=== PATIENT | male | born 1935 | race Hispanic/Latino ===

== ENCOUNTER → 2017-12-20 | Outpatient (CLI) | payer OTHER ==
[~2017-12-20] MED LIST: CLON0.3T PO; LEVO50TA11 PO; LISI40TA4 PO; MULT-1289 PO; PRAV40TA3 PO; VITA1CAP85 PO
== END | disposition home or self-care (01) ==
LOC: RAH 08:49
PROVIDERS: ATTEND Internal Medicine Cardiovascular Disease
DX: M47.896 Other spondylosis, lumbar region (principal); M51.26 Other intervertebral disc displacement, lumbar region; I73.9 Peripheral vascular disease, unspecified; N28.1 Cyst of kidney, acquired
CPT/HCPCS: 72148

== ENCOUNTER → 2018-01-03 | Outpatient (CLI) | payer OTHER | END | disposition home or self-care (01) | LOC: SHCH 09:23 | PROVIDERS: ATTEND Internal Medicine Cardiovascular Disease | DX: I73.9 Peripheral vascular disease, unspecified (principal); I71.4 Abdominal aortic aneurysm, without rupture | CPT/HCPCS: 93925; 93978 ==

== ENCOUNTER → 2018-05-10 | Outpatient (CLI) | payer OTHER ==
[~2018-05-10] VITALS: Ht 185.4 cm; Wt 77.1 kg
[~2018-05-10] MED LIST changes: +REGADENOSON 0.4 MG/5 ML PF SYG IVP SCH
== END | disposition home or self-care (01) ==
LOC: SHCH 08:33
PROVIDERS: ATTEND Internal Medicine Cardiovascular Disease
DX: I25.9 Chronic ischemic heart disease, unspecified (principal); I10 Essential (primary) hypertension; R94.31 Abnormal electrocardiogram [ECG] [EKG]; E03.9 Hypothyroidism, unspecified
CPT/HCPCS: 78452; 93017; 96374; A9500 ×2; J2785

== ENCOUNTER → 2018-05-14 | Outpatient (CLI) | payer OTHER ==
[~2018-05-14] MED LIST changes: -REGADENOSON 0.4 MG/5 ML PF SYG IVP SCH
== END | disposition home or self-care (01) ==
LOC: SHCH 12:56
PROVIDERS: ATTEND Internal Medicine Cardiovascular Disease
DX: R94.31 Abnormal electrocardiogram [ECG] [EKG] (principal); I10 Essential (primary) hypertension
CPT/HCPCS: 93306

== ENCOUNTER → 2018-10-25 | Outpatient (CLI) | payer OTHER ==
[~2018-10-25] MED LIST changes: +AEC81 PO; -LEVO50TA11 PO; +LEVO75TA10 PO; +MULT-1258 PO; -MULT-1289 PO; +SUPER B COMPLEX PO; -VITA1CAP85 PO
== END | disposition home or self-care (01) ==
LOC: SHCH 11:19
PROVIDERS: ATTEND Internal Medicine Cardiovascular Disease
DX: I11.9 Hypertensive heart disease without heart failure (principal)
CPT/HCPCS: 93306

== ENCOUNTER → 2018-11-01 | Outpatient (CLI) | payer OTHER ==
[~2018-11-01] VITALS: Ht 185.4 cm; Wt 73.5 kg
[~2018-11-01] MED LIST changes: +REGADENOSON 0.4 MG/5 ML PF SYG IVP SCH
== END | disposition home or self-care (01) ==
LOC: SHCH 09:26
PROVIDERS: ATTEND Internal Medicine Cardiovascular Disease
DX: I25.810 Atherosclerosis of coronary artery bypass graft(s) without angina pectoris (principal)
CPT/HCPCS: 78452; 93017; 96374; A9500 ×2; J2785

== ENCOUNTER 2018-12-11 06:16 | Observation (INO) | payer OTHER ==
[2018-12-09 09:17] LABS: BASOPHILS % (AUTO) 0.7 % (0.0-5.0); EOSINOPHILS % (AUTO) 2.3 % (0.0-8.0); HEMATOCRIT 47.4 % (42-54); LYMPHOCYTES % (AUTO) 24.6 % (21.0-51.0); MEAN CORPUSCULAR HEMOGLOBIN 31.8 pg (27.0-33.0); MEAN CORPUSCULAR HGB CONC 33.8 g/dL (32.0-36.0); MEAN CORPUSCULAR VOLUME 94.2 fL (79-99); MONOCYTES % (AUTO) 6.9 % (3.0-13.0); NEUTROPHILS % (AUTO) 65.5 % (40.0-77.0); PLATELET COUNT (AUTO) 144 K/uL (130-400); RED BLOOD CELL COUNT(AUTO) 5.03 MIL/uL (4.50-6.20); WHITE BLOOD COUNT (AUTO) 4.6 K/uL (4.8-10.8)
[2018-12-09 09:19] LABS: APPEARANCE,URINE Clear (CLEAR); BILIRUBIN,URINE Negative (NEGATIVE); COLOR,URINE Yellow (YELLOW); GLUCOSE, URINE (UA) Negative (NEGATIVE); KETONES,URINE Negative (NEGATIVE); LEUKOCYTE ESTERASE ,URINE Negative (NEGATIVE); NITRATE,URINE Negative (NEGATIVE); OCCULT BLOOD,URINE Small (NEGATIVE); PROTEIN,URINE Negative (NEGATIVE)
[2018-12-09 09:25] VITALS: BP 180/82
[2018-12-09 09:29] LABS: BACTERIA,URINE Rare /HPF (None Seen); RBC,URINE 0-1 /HPF (0-1); SQUAMOUS EPITHELIAL CELL,UR Rare /HPF (0-2); WBC,URINE 0-1 /HPF (0-1)
[2018-12-09 09:31] LABS: CREATININE 1.1 mg/dL (0.5-1.5); POTASSIUM 5.4 mmol/L (3.5-5.1)
[2018-12-09 09:34] LABS: INR 1.04 (0.85-1.15); PROTHROMBIN TIME 10.9 SEC (9.6-11.6)
--- NOTE | 2018-12-10 13:31 | NUR ---
POTASSIUM RESULTS NOTIFIED MELIDA MAHONEY OF POTASSIUM 5.4. SAID IT SHOULD BE FINE. NO FURTHER ORDERS RECEIVED.
[~2018-12-11] VITALS: Ht 180.3 cm; Wt 74.9 kg
[2018-12-11] VITALS (12 sets, daily range): BP systolic 118–164; BP diastolic 69–101
[~2018-12-11 06:16] MED LIST changes: -CLON0.3T PO; +METO25TA6 PO; -MULT-1258 PO; -REGADENOSON 0.4 MG/5 ML PF SYG IVP SCH; +SODIUM CHLORIDE 0.9% 500ML 500 ML IV SCH; +feosol PO
[2018-12-11] MEDS ORDERED: SODIUM CHLORIDE 0.9% 1000ML 1,000 ML IV ONE (06:40)
[2018-12-11] MEDS ORDERED: HEPARIN SODIUM 1000UNIT/ML 10ML VIAL ONE (07:20)
[2018-12-11] MEDS ORDERED: NITROGLYCERIN 5 MG/ML 10 ML VIAL IV ONE (07:20)
[2018-12-11] MEDS ORDERED: IOHEXOL-350 50ML VIAL IV ONE ×2 (07:20→08:51)
[2018-12-11] MEDS ORDERED: LIDOCAINE HCL 2% 20ML ONE (07:20)
[2018-12-11] MEDS ORDERED: SODIUM BICARB 50MEQ 50ML VIAL ONE (07:20)
[2018-12-11] MEDS ORDERED: IOHEXOL 350 MG/ML 100ML INFUS..BTL IV ONE (07:20)
[2018-12-11] MEDS ORDERED: MIDAZOLAM HCL 1 MG/ML 2ML VIAL ONE ×2 (07:41→08:42)
[2018-12-11] MEDS ORDERED: MEPERIDINE-PF 25 MG/ML SYG ONE ×2 (07:41→08:42)
[2018-12-11] MEDS ORDERED: IOHEXOL-350 75 ML VIAL IV ONE (08:05)
[2018-12-11] MEDS ORDERED: LABETALOL HCL 5 MG/ML 20ML VIAL IV ONE (08:29)
[2018-12-11] MEDS ORDERED: CLOPIDOGREL BISULFATE 300 MG TAB ONE (09:28)
[2018-12-11] MEDS ORDERED: ASPIRIN 325MG EC TAB 325 MG TABLET.DR PO ONE (09:29)
[2018-12-11] MEDS ORDERED: TEMAZEPAM 30 MG CAP PO PRN (09:30)
[2018-12-11] MEDS ORDERED: ONDANSETRON HCL 4 MG/2 ML VIAL IVP PRN (09:30)
[2018-12-11] MEDS ORDERED: NITROGLYCERIN 50 MG/D5% WATER 1 BOT IV PRN (09:30)
[2018-12-11] MEDS ORDERED: ACETAMINOPHEN-CODEINE 300/30MG TAB PO PRN ×2 (09:30)
--- NOTE | 2018-12-11 10:10 | NUR ---
ARRIVAL TO FLOOR PT IS AAOX4 DENIES CP DENIES SOB DENIES NV NO COMPLAINTS. RIGHT GROIN PERCLOSE DRESSING INTACT. BEDREST IN PROGRESS. FAMILY IS AT BEDSIDE, CALL LIGHT WITHIN REACH
[2018-12-11] MEDS: SODIUM CHLORIDE 0.9% 1000ML 1,000 ML IV SCH ×2 (10:27→23:16)
--- NOTE | 2018-12-11 12:00 | NUR ---
STATUS RESTING IN BED. RIGHT GROIN REMAINS WNL. NO COMPLAINTS FAMILY IS AT BEDSIDE.
--- NOTE | 2018-12-12 | NUR ---
PT CONTINUES ON IV FLUIDS. RIGHT GROIN SITE IS SEMI-SOFT AND NON TENDER. STATES NO PAIN. ABLE TO MOVE AROUND IN BED. AAO3. PERRLA. PT IS STABLE. NO MEDICATIONS DUE AT THIS TIME. LAST BM 12/11. PENDING D/C 12/12.
[2018-12-12 03:26] VITALS: BP 112/74
[2018-12-12 03:52] LABS: HEMATOCRIT 41.9 % (42-54); MEAN CORPUSCULAR HEMOGLOBIN 32.2 pg (27.0-33.0); MEAN CORPUSCULAR HGB CONC 34.3 g/dL (32.0-36.0); MEAN CORPUSCULAR VOLUME 93.9 fL (79-99); NUCLEATED RED BLOOD CELLS 0.1 % (0.0-0.19); PLATELET COUNT (AUTO) 111 K/uL (130-400); RED BLOOD CELL COUNT(AUTO) 4.46 MIL/uL (4.50-6.20)
[2018-12-12 04:16] LABS: POTASSIUM 4.5 mmol/L (3.5-5.1)
[2018-12-12 07:54] VITALS: BP 142/81
[2018-12-12] MEDS ORDERED: ATORVASTATIN CALCIUM 10 MG TABLET PO SCH (09:00)
[2018-12-12] MEDS ORDERED: VITAMIN B COMPLEX 1 CAPSULE PO SCH (09:00)
[2018-12-12] MEDS ORDERED: LISINOPRIL 40 MG TABLET PO SCH (09:00)
[2018-12-12] MEDS ORDERED: PANTOPRAZOLE SODIUM 40 MG TABLET.DR PO SCH (09:00)
[2018-12-12] MEDS ORDERED: ASPIRIN 81 MG EC TAB PO SCH (09:00)
[2018-12-12] MEDS ORDERED: CLOPIDOGREL BISULFATE 75 MG TAB PO SCH (09:00)
[2018-12-12] MEDS ORDERED: FERROUS SULFATE 325 MG TABLET.DR PO SCH (09:00)
[2018-12-12] MEDS ORDERED: LEVOTHYROXINE 75 MCG TABLET PO SCH (09:00)
[2018-12-12] MEDS ORDERED: ASPIRIN 81MG TAB.CHEW PO SCH (09:00)
[2018-12-12] MEDS ORDERED: CLOP75TA14 PO (11:00)
[2018-12-12] MEDS ORDERED: METOPROLOL TARTRATE 25 MG TAB PO SCH (21:00)
== END 2018-12-12 11:45 | disposition home or self-care (01) ==
LOC: DAH 06:16 → DAHIP 06:17 → 2AH 09:51
PROVIDERS: ADMIT Internal Medicine; ATTEND Internal Medicine
DX: I25.118 Atherosclerotic heart disease of native coronary artery with other forms of angina pectoris (principal); I25.810 Atherosclerosis of coronary artery bypass graft(s) without angina pectoris; E03.9 Hypothyroidism, unspecified; E78.5 Hyperlipidemia, unspecified; I11.0 Hypertensive heart disease with heart failure; I50.42 Chronic combined systolic (congestive) and diastolic (congestive) heart failure; I25.5 Ischemic cardiomyopathy; I25.82 Chronic total occlusion of coronary artery; I77.819 Aortic ectasia, unspecified site; Z86.73 Personal history of transient ischemic attack (TIA), and cerebral infarction without residual deficits; Z82.49 Family history of ischemic heart disease and other diseases of the circulatory system; Z83.3 Family history of diabetes mellitus; Z95.1 Presence of aortocoronary bypass graft; Z95.5 Presence of coronary angioplasty implant and graft
CPT/HCPCS: 36415 ×2; 71045; 80048 ×2; 80061; 81001; 85025; 85027; 85610; 85730; 93005 ×2; 93459; A4606; C1725; C1760; C1769 ×2; C1874 ×3; C1887; C1894 ×2; C9600; G0378 ×29; J1644 ×3; J2175 ×2; J2250 ×2; J3490 ×4; J7030 ×2; Q9965; Q9967 ×4; 99156; 99157

== ENCOUNTER 2019-01-07 06:05 | Observation (INO) | payer OTHER ==
[2019-01-03 10:41] VITALS: BP 172/84
[2019-01-03 11:15] LABS: APPEARANCE,URINE Clear (CLEAR); BILIRUBIN,URINE Negative (NEGATIVE); COLOR,URINE Yellow (YELLOW); GLUCOSE, URINE (UA) Negative (NEGATIVE); KETONES,URINE Negative (NEGATIVE); LEUKOCYTE ESTERASE ,URINE Negative (NEGATIVE); NITRATE,URINE Negative (NEGATIVE); OCCULT BLOOD,URINE Nonhemolyzed Trace (NEGATIVE); PROTEIN,URINE Negative (NEGATIVE); UROBILINOGEN,URINE 0.2 mg/dL (0.2-1.0)
[2019-01-03 11:17] LABS: BASOPHILS % (AUTO) 0.8 % (0.0-5.0); EOSINOPHILS % (AUTO) 1.2 % (0.0-8.0); HEMATOCRIT 46.3 % (42-54); LYMPHOCYTES % (AUTO) 20.7 % (21.0-51.0); MEAN CORPUSCULAR HEMOGLOBIN 31.7 pg (27.0-33.0); MEAN CORPUSCULAR HGB CONC 33.1 g/dL (32.0-36.0); MEAN CORPUSCULAR VOLUME 95.6 fL (79-99); MONOCYTES % (AUTO) 6.6 % (3.0-13.0); NEUTROPHILS % (AUTO) 70.7 % (40.0-77.0); NUCLEATED RED BLOOD CELLS 0.1 % (0.0-0.19); PLATELET COUNT (AUTO) 148 K/uL (130-400); RED BLOOD CELL COUNT(AUTO) 4.84 MIL/uL (4.50-6.20); RED CELL DISTRIBUTION WIDTH 13.6 % (11.0-15.5); WHITE BLOOD COUNT (AUTO) 4.5 K/uL (4.8-10.8)
[2019-01-03 11:26] LABS: POTASSIUM 4.9 mmol/L (3.5-5.1)
[2019-01-03 11:34] LABS: INR 1.04 (0.85-1.15); PARTIAL THROMBOPLASTIN TIME 35.2 SEC (26.3-35.5); PROTHROMBIN TIME 10.9 SEC (9.6-11.6)
[2019-01-03 12:28] LABS: BACTERIA,URINE Rare /HPF (None Seen); RBC,URINE 0-1 /HPF (0-1); WBC,URINE None Seen /HPF (0-1)
[2019-01-06 08:55] VITALS: BP 148/73
[2019-01-07] VITALS (18 sets, daily range): BP systolic 102–174; BP diastolic 57–88
[~2019-01-07] VITALS: Ht 182.9 cm; Wt 71.7 kg
[~2019-01-07 06:05] MED LIST changes: +BENZ-51 PO; +CLOP75TA32 PO; +MULT-1258 PO; +VITAMIN B12 PO
[2019-01-07] MEDS ORDERED: SODIUM CHLORIDE 0.9% 1000ML 1,000 ML IV ONE (06:37)
[2019-01-07] MEDS ORDERED: SODIUM BICARB 50MEQ 50ML VIAL ONE (08:21)
[2019-01-07] MEDS ORDERED: IOHEXOL 350 MG/ML 100ML INFUS..BTL IV ONE ×3 (08:22→11:06)
[2019-01-07] MEDS ORDERED: LIDOCAINE HCL 2% 20ML ONE (08:22)
[2019-01-07] MEDS ORDERED: NITROGLYCERIN 5 MG/ML 10 ML VIAL IV ONE (08:22)
[2019-01-07] MEDS ORDERED: IOHEXOL-350 50ML VIAL IV ONE (08:22)
[2019-01-07] MEDS ORDERED: HEPARIN SODIUM 1000UNIT/ML 10ML VIAL ONE (08:24)
[2019-01-07] MEDS ORDERED: MEPERIDINE-PF 25 MG/ML SYG ONE (08:42)
[2019-01-07] MEDS ORDERED: MIDAZOLAM HCL 1 MG/ML 2ML VIAL ONE (08:42)
[2019-01-07] MEDS ORDERED: LABETALOL 20 MG/4 ML DISP.SYRIN IV ONE (09:12)
[2019-01-07] MEDS ORDERED: ACETAMINOPHEN-CODEINE 300/30MG TAB PO PRN (11:45)
[2019-01-07] MEDS ORDERED: BENZONATATE 100 MG CAPSULE PO PRN (12:00)
--- NOTE | 2019-01-07 12:15 | NUR ---
PATIENT RETURNED FROM USER EXPERIENCE RESEARCHER IN NO DISTRESS. RIGHT GROIN HAS PRESSURE DRESSING CLEAN AND DRY. PATIENT STATES FEELING WELL. BOTH PATIENT AND FAMILY INSTRUCTED ON PATIENT BEING ON BEDREST. THEY VERBALIZED UNDERSTANDING AND AGREED TO COMPLY.
--- NOTE | 2019-01-07 15:30 | NUR ---
REPORT CALLED TO NAZANIN BETH RN BEFORE TRANSFERRING PT.
--- NOTE | 2019-01-07 15:40 | NUR ---
PATIENT TRANSFERRED VIA HOSPITAL BED TO ROOM 225, PATIENT FAMILY NOTIFIED OF ROOM NUMBER.
--- NOTE | 2019-01-07 15:45 | NUR ---
PATIENT RECEIVED FROM CLAMP JIG ASSEMBLER S/P [facility]. PATIENT ALERT AWAKE AND ORIENTED X3. ORIENTED TO ROOM, BED PLACED TO LOWEST POSITION, CALL LIGHT PLACED WITHIN REACH. INSTRUCTED PATIENT ON LAYING FLAT TILL INSTRUCTED. FAMILY AT BEDSIDE. IV TO LEFT ARM PATENT, IV INFUSING. RIGHT GROIN SITE PRESSURE DRESSING AND PERCLOSE DRY AND INTACT. NO S/S OF BLEEDING. FAMILY WITH NO QUESTIONS OR CONCERNS. PATIENT VS STABLE.
--- NOTE | 2019-01-07 20:30 | NUR ---
ASSESSMENT PATIENT IS AAOX3. S/P LEFT HEART CATH. RT GROIN WITH HEMATOMA. HEMATOMA REPORTED BY A.M. NURSE. HEMATOMA CIRCLED. NO BLEEDING NOTED. PEDAL PULSES PALPABLE. WILL CONTINUE TO MONITOR. CALL LIGHT WITHIN REACH.
[2019-01-07] MEDS ORDERED: ATORVASTATIN CALCIUM 10 MG TABLET PO SCH (21:00)
[2019-01-07] MEDS ORDERED: CLOPIDOGREL BISULFATE 75 MG TAB PO SCH (21:00)
[2019-01-07] MEDS ORDERED: METOPROLOL TARTRATE 25 MG TAB PO SCH (21:00)
[2019-01-07] MEDS: SODIUM CHLORIDE 0.9% 1000ML 1,000 ML IV SCH (21:32)
--- NOTE | 2019-01-07 22:15 | NUR ---
RT. GROIN REMAINS UNCHANGED. NO BLEEDING NOTED. PEDAL PULSES PALPABLE.
--- NOTE | 2019-01-07 23:30 | NUR ---
RT. GROIN REMAINS CHANGED.
[2019-01-08] MEDS: SODIUM CHLORIDE 0.9% 1000ML 1,000 ML IV SCH (01:59)
--- NOTE | 2019-01-08 02:30 | NUR ---
RT. GROIN WITH NO BLEEDING. HEMATOMA REMAINS UNCHANGED. PEDAL PULSES PALPABLE.
[2019-01-08 03:44] LABS: HEMATOCRIT 39.1 % (42-54); MEAN CORPUSCULAR HEMOGLOBIN 33.1 pg (27.0-33.0); MEAN CORPUSCULAR HGB CONC 34.8 g/dL (32.0-36.0); MEAN CORPUSCULAR VOLUME 95.1 fL (79-99); PLATELET COUNT (AUTO) 106 K/uL (130-400); RED BLOOD CELL COUNT(AUTO) 4.11 MIL/uL (4.50-6.20); RED CELL DISTRIBUTION WIDTH 13.5 % (11.0-15.5); WHITE BLOOD COUNT (AUTO) 4.5 K/uL (4.8-10.8)
[2019-01-08 03:52] LABS: CREATININE 0.9 mg/dL (0.5-1.5); POTASSIUM 4.2 mmol/L (3.5-5.1)
--- NOTE | 2019-01-08 04:00 | NUR ---
RT. GROIN REMAINS UNCHANGED. WILL CONTINUE TO MONITOR.
[2019-01-08 04:08] VITALS: BP 96/63
[2019-01-08] MEDS ORDERED: LEVOTHYROXINE 75 MCG TABLET PO SCH (06:30)
[2019-01-08 08:03] VITALS: BP 127/86
[2019-01-08] MEDS ORDERED: MULTIVITAMIN WITH MINERALS TABLET PO SCH (09:00)
[2019-01-08] MEDS ORDERED: ASPIRIN 81 MG EC TAB PO SCH (09:00)
[2019-01-08] MEDS ORDERED: LISINOPRIL 40 MG TABLET PO SCH (09:00)
[2019-01-08] MEDS ORDERED: VITAMIN B COMPLEX 1 CAPSULE PO SCH (09:00)
[2019-01-08] MEDS ORDERED: FERROUS SULFATE 325 MG TABLET.DR PO SCH (09:00)
[2019-01-08] MEDS ORDERED: CYANOCOBALAMIN (VITAMIN B-12) 1,000 MCG TABLET PO SCH (09:00)
[2019-01-08 11:59] VITALS: BP 143/81
[2019-01-08] MEDS ORDERED: ISOS30TA6 PO ×2 (12:45→12:46)
== END 2019-01-08 13:35 | disposition home or self-care (01) ==
LOC: DAH 06:05 → DAHIP 06:06 → 2DH 15:49
PROVIDERS: ADMIT Internal Medicine; ATTEND Internal Medicine
DX: I25.10 Atherosclerotic heart disease of native coronary artery without angina pectoris (principal); E03.9 Hypothyroidism, unspecified; E78.5 Hyperlipidemia, unspecified; I10 Essential (primary) hypertension; Z95.1 Presence of aortocoronary bypass graft; Z83.3 Family history of diabetes mellitus; Z82.49 Family history of ischemic heart disease and other diseases of the circulatory system; Z79.01 Long term (current) use of anticoagulants
CPT/HCPCS: 36415 ×2; 71045; 80048 ×2; 81001; 85025; 85027; 85610; 85730; 93005; 93454; C1725 ×6; C1760; C1769 ×4; C1874 ×2; C1887 ×2; C1894 ×2; C9600; G0378 ×31; J1644 ×3; J2175; J2250; J3490 ×3; J7030 ×2; Q9965 ×2; Q9967 ×3; 99156; 99157

== ENCOUNTER 2019-05-17 19:16 | Observation (INO) | payer OTHER ==
[~2019-05-17] VITALS: Ht 185.4 cm; Wt 75.3 kg
[~2019-05-17 19:16] MED LIST changes: +ISOS30TA6 PO; -SODIUM CHLORIDE 0.9% 500ML 500 ML IV SCH
[2019-05-17] MEDS ORDERED: ASPIRIN 81MG TAB.CHEW ONE (19:41)
[2019-05-17 19:46] LABS: BASOPHILS % (AUTO) 0.5 % (0.0-5.0); EOSINOPHILS % (AUTO) 0.8 % (0.0-8.0); HEMATOCRIT 45.3 % (42-54); MEAN CORPUSCULAR HEMOGLOBIN 32.2 pg (27.0-33.0); MEAN CORPUSCULAR HGB CONC 34.4 g/dL (32.0-36.0); MEAN CORPUSCULAR VOLUME 93.9 fL (79-99); MONOCYTES % (AUTO) 2.9 % (3.0-13.0); NEUTROPHILS % (AUTO) 87.8 % (40.0-77.0); PLATELET COUNT (AUTO) 113 K/uL (130-400); RED BLOOD CELL COUNT(AUTO) 4.82 MIL/uL (4.50-6.20); RED CELL DISTRIBUTION WIDTH 13.3 % (11.0-15.5)
[2019-05-17 20:04] LABS: CREATININE 1.1 mg/dL (0.5-1.5); POTASSIUM 4.1 mmol/L (3.5-5.1)
[2019-05-17 20:07] LABS: ALBUMIN 4.1 g/dL (3.5-5.0); BILIRUBIN,TOTAL 0.8 mg/dL (0.2-1.0); TOTAL PROTEIN, SERUM 7.5 g/dL (6.0-8.3)
[2019-05-17 20:25] LABS: B-TYPE NATRIURETIC PEPTIDE 91 pg/mL (0-100)
[2019-05-17 20:26] LABS: APPEARANCE,URINE Clear (CLEAR); BILIRUBIN,URINE Negative (NEGATIVE); COLOR,URINE Yellow (YELLOW); GLUCOSE, URINE (UA) Negative (NEGATIVE); KETONES,URINE Negative (NEGATIVE); LEUKOCYTE ESTERASE ,URINE Negative (NEGATIVE); NITRATE,URINE Negative (NEGATIVE); OCCULT BLOOD,URINE Small (NEGATIVE); PH,URINE 6.5 (5.0-8.0); PROTEIN,URINE POS 1+ mg/dL (NEGATIVE)
[2019-05-17 20:38] LABS: BACTERIA,URINE Few /HPF (None Seen); MUCUS,URINE Moderate LPF (None Seen)
[2019-05-17] MEDS ORDERED: IPRATROPIUM/ALBUTEROL SULFATE 3 ML SOLUTION IH PRN (21:15)
[2019-05-17] MEDS ORDERED: ACETAMINOPHEN 325 MG TAB PO PRN ×2 (21:15)
[2019-05-17] MEDS ORDERED: ONDANSETRON HCL 4 MG/2 ML VIAL IV PRN (21:15)
[2019-05-17] MEDS ORDERED: LACTULOSE 20 GM/30 ML UDCUP PO PRN (21:15)
[2019-05-17] MEDS ORDERED: HYDRALAZINE HCL 20 MG/ML VIAL IV PRN (21:15)
[2019-05-17 21:25] LABS: CHOLESTEROL 143 mg/dL (<200); HDL CHOLESTEROL 124 mg/dL (29-71); HEMOGLOBIN A1C 5.4 % (4.0-6.0); LDL DIRECT 67 mg/dL (0-99); TRIGLYCERIDES 71 mg/dL (30-200)
[2019-05-17 22:49] VITALS: BP 116/70
[2019-05-18] VITALS (8 sets, daily range): BP systolic 96–148; BP diastolic 47–88
[2019-05-18 02:57] LABS: TROPONIN I 0.05 ng/mL (0.00-0.06)
[2019-05-18] MEDS ORDERED: NOREPINEPHRINE 4MG/NS 250ML 250 ML IV SCH (04:45)
--- NOTE | 2019-05-18 05:00 | NUR ---
B/P B/P 74/47 PULSE 42, RESP,.18 TEMP 98.6 F, SAT 95 ON R/A, HOSPITALIST Elsy HASTINGS POLICY SERVICE COORDINATOR TO SEE PATIENT AND EXAMEN WITH ORDERS TO SEND PATIENT TO ICU FOR VASOPRESSOR, START BOLUS 1000 CC OF NS NOW
[2019-05-18] MEDS ORDERED: FEXO-59 PO (05:06)
[2019-05-18] MEDS ORDERED: BUDE10.2 IH (05:06)
[2019-05-18] MEDS ORDERED: CILO50TA PO (05:06)
--- NOTE | 2019-05-18 05:15 | NUR ---
TRANSFER REPORT GIVEN TO ICU ORDERED TO TRANSFER PATIENT ORDERED, TEMP97.9 F/RESP 68 B/P 125/71, SAT 95 R/A, A DARLING COMPUTER REPAIR ENGINEER AT BEDSIDE, WITH ORDERS TO TRANSFER
[2019-05-18] MEDS ORDERED: SODIUM CHLORIDE 0.9% 1000ML 1,000 ML IV ONE (05:30)
[2019-05-18 05:35] LABS: BASOPHILS % (AUTO) 1.9 % (0.0-5.0); EOSINOPHILS % (AUTO) 0.6 % (0.0-8.0); HEMATOCRIT 40.2 % (42-54); LYMPHOCYTES % (AUTO) 10.8 % (21.0-51.0); MEAN CORPUSCULAR HEMOGLOBIN 32.2 pg (27.0-33.0); MEAN CORPUSCULAR VOLUME 94.8 fL (79-99); MONOCYTES % (AUTO) 6.2 % (3.0-13.0); NEUTROPHILS % (AUTO) 80.5 % (40.0-77.0); PLATELET COUNT (AUTO) 101 K/uL (130-400); RED BLOOD CELL COUNT(AUTO) 4.24 MIL/uL (4.50-6.20); RED CELL DISTRIBUTION WIDTH 13.4 % (11.0-15.5)
[2019-05-18 05:42] LABS: CREATININE 1.2 mg/dL (0.5-1.5); POTASSIUM 4.3 mmol/L (3.5-5.1)
--- NOTE | 2019-05-18 05:42 | NUR ---
TRANSFER TRANSFER TO ROOM 219 VIA BED ORDERED BY HOSPITALIST DARLING Chin
[2019-05-18 05:55] LABS: THYROID STIMULATING HORMONE 1.92 uIU/mL (0.36-3.74)
[2019-05-18 08:29] LABS: CREATINE KINASE, TOTAL 99 U/L (21-232); MYOGLOBIN 130 ng/mL (10-92); TROPONIN I < 0.04 ng/mL (0.00-0.06)
[2019-05-18] MEDS ORDERED: ENOXAPARIN SODIUM 40 MG/0.4 ML SYRINGE SQ SCH (09:00)
[2019-05-18] MEDS ORDERED: METOPROLOL TARTRATE 25 MG TAB PO SCH ×2 (09:00→21:00)
[2019-05-18] MEDS ORDERED: ASPIRIN 325 MG TABLET PO SCH (09:00)
[2019-05-18] MEDS: FAMOTIDINE 20MG TAB 20 MG TAB PO SCH ×2 (09:38→21:09)
[2019-05-18] MEDS ORDERED: ASPIRIN 81 MG EC TAB PO SCH (10:00)
--- NOTE | 2019-05-18 14:37 | NUR ---
cm note met with patient and with spouse, pt lives with spouse, pt uses rollator walker for ambulation.pt able to do own adls, spouse assists with cooking meals, etc. takes to md as needed. states dc plan is back to same home setting. no dc needs. provided with [facility] agency on aging info,per request for possible future needs. Addendum: 05/18/19 at 1445 by RENITA RICH CM Amended: Links added.
[2019-05-18] MEDS ORDERED: BENZONATATE 100 MG CAPSULE PO PRN (14:45)
[2019-05-18] MEDS: ISOSORBIDE MONO 30MG TAB SR PO SCH (15:13)
[2019-05-18] MEDS: LISINOPRIL 40 MG TABLET PO SCH (15:13)
[2019-05-18 15:25] LABS: CREATINE KINASE, TOTAL 89 U/L (21-232); MYOGLOBIN 135 ng/mL (10-92); TROPONIN I < 0.04 ng/mL (0.00-0.06)
[2019-05-18] MEDS ORDERED: PHARMACY COMMUNICATION MISC SCH (16:15)
[2019-05-18] MEDS: ALBUTEROL SULFATE 0.083% 2.5 MG/3 ML INH IH SCH ×2 (18:51→23:28)
[2019-05-18] MEDS: BUDESONIDE 0.5 MG/2 ML INH IH SCH (18:52)
[2019-05-18] MEDS ORDERED: ATORVASTATIN CALCIUM 20 MG TABLET PO SCH (21:00)
[2019-05-18] MEDS ORDERED: ATORVASTATIN CALCIUM 10 MG TABLET PO SCH (21:00)
[2019-05-18] MEDS ORDERED: CLOPIDOGREL BISULFATE 75 MG TAB PO SCH (21:00)
[2019-05-19] VITALS: BP 119/77
[2019-05-19 03:35] VITALS: BP 112/73
--- NOTE | 2019-05-19 05:01 | NUR ---
Assessment Patient assessed several times during toggler and denies any chest pain. Vitals signs have been stable and oxygen sats have been greater than 92%. Patient AOX3, NO distress noted. No family at bedside, and call light within reach.
[2019-05-19] MEDS ORDERED: LEVOTHYROXINE 75 MCG TABLET PO SCH (06:30)
[2019-05-19] MEDS: ALBUTEROL SULFATE 0.083% 2.5 MG/3 ML INH IH SCH (06:30)
[2019-05-19 07:00] VITALS: BP 138/81
[2019-05-19] MEDS: BUDESONIDE 0.5 MG/2 ML INH IH SCH (07:08)
[2019-05-19] MEDS ORDERED: ASPIRIN 81 MG EC TAB PO SCH (09:00)
[2019-05-19] MEDS ORDERED: MULTIVITAMIN WITH MINERALS TABLET PO SCH (09:00)
[2019-05-19] MEDS ORDERED: ISOSORBIDE MONO 30MG TAB SR PO SCH (09:00)
[2019-05-19] MEDS ORDERED: LISINOPRIL 40 MG TABLET PO SCH (09:00)
[2019-05-19] MEDS ORDERED: VITAMIN B12 PO SCH (09:00)
[2019-05-19] MEDS ORDERED: VITAMIN B COMPLEX 1 CAPSULE PO SCH (09:00)
[2019-05-19] MEDS ORDERED: FERROUS SULFATE 325 MG TABLET.DR PO SCH (09:00)
[2019-05-19] MEDS ORDERED: CETIRIZINE HCL 5 MG TABLET PO SCH (09:00)
[2019-05-19] MEDS: FAMOTIDINE 20MG TAB 20 MG TAB PO SCH (09:52)
[2019-05-19] MEDS: ISOSORBIDE MONO 30MG TAB SR PO SCH (09:52)
[2019-05-19] MEDS: LISINOPRIL 40 MG TABLET PO SCH (09:52)
[2019-05-19 11:00] VITALS: BP 164/87
[2019-05-19 12:30] VITALS: BP 132/83
--- NOTE | 2019-05-19 12:43 | NUR ---
DISCHARGE INSTRUCTIONS/INFORMATION GIVEN TO PATIENT AND AT BEDSIDE. TEACH BACK METHOD USED TO EDUCATE PATIENT ON DIET, MEDS, S/S TO MONITOR, WHEN TO CALL MD, AND F/U APPOINTMENTS. PIV REMOVED. TIP WAS INTACT. TELE PACK REMOVED AND RETURNED. ALL BELONGINGS WERE PACKED AND TAKEN HOME.
== END 2019-05-19 12:43 | disposition home or self-care (01) ==
LOC: EDH 19:16 → EDHIP 20:31 → 4BH 22:31 → 2CH 05-18 05:35 → 2DH 05-18 07:34
PROVIDERS: ADMIT Family Medicine; ATTEND Family Medicine
DX: R00.2 Palpitations (principal); R06.03 Acute respiratory distress; R07.89 Other chest pain; R94.31 Abnormal electrocardiogram [ECG] [EKG]; R00.1 Bradycardia, unspecified; I44.4 Left anterior fascicular block; I25.119 Atherosclerotic heart disease of native coronary artery with unspecified angina pectoris; I73.9 Peripheral vascular disease, unspecified; I10 Essential (primary) hypertension; E78.5 Hyperlipidemia, unspecified; E03.9 Hypothyroidism, unspecified; Z86.73 Personal history of transient ischemic attack (TIA), and cerebral infarction without residual deficits; Z95.1 Presence of aortocoronary bypass graft; Z95.5 Presence of coronary angioplasty implant and graft; Z79.82 Long term (current) use of aspirin; Z79.51 Long term (current) use of inhaled steroids; Z79.899 Other long term (current) drug therapy
CPT/HCPCS: 36415 ×2; 71045; 80048; 80053; 80061; 81001; 82550 ×3; 83036; 83690; 83874 ×3; 83880; 84443; 84484 ×4; 85025 ×2; 93005 ×2; 94640 ×5; 94664; 96372; 99284; G0378 ×39; J1650 ×2

== ENCOUNTER → 2019-08-14 | Outpatient (CLI) | payer OTHER ==
[~2019-08-14] MED LIST changes: +BUDE10.2 IH; +FEXO-59 PO
== END | disposition home or self-care (01) ==
LOC: SHCH 13:51
PROVIDERS: ATTEND Internal Medicine Cardiovascular Disease
DX: I35.8 Other nonrheumatic aortic valve disorders (principal); I10 Essential (primary) hypertension; I25.810 Atherosclerosis of coronary artery bypass graft(s) without angina pectoris
CPT/HCPCS: 93306

== ENCOUNTER → 2020-04-20 | Outpatient (CLI) | payer OTHER | END | disposition home or self-care (01) | LOC: SHCH 07:57 | PROVIDERS: ATTEND Internal Medicine Cardiovascular Disease | DX: I70.0 Atherosclerosis of aorta (principal); I71.4 Abdominal aortic aneurysm, without rupture; I25.10 Atherosclerotic heart disease of native coronary artery without angina pectoris | CPT/HCPCS: 93978 ==

== ENCOUNTER → 2022-07-15 | Outpatient (CLI) | payer MEDICARE ==
[~2022-07-15] MED LIST changes: -BENZ-51 PO; +BENZ-70 PO; +FEXO-263 PO; -FEXO-59 PO; -ISOS30TA6 PO; +ISOS30TA92 PO; -LISI40TA4 PO; +LISI40TA9 PO
== END | disposition home or self-care (01) ==
LOC: SHCH 08:07
PROVIDERS: ATTEND Internal Medicine Cardiovascular Disease
DX: I71.40 Abdominal aortic aneurysm, without rupture, unspecified (principal); I70.0 Atherosclerosis of aorta; I70.8 Atherosclerosis of other arteries; I25.10 Atherosclerotic heart disease of native coronary artery without angina pectoris
CPT/HCPCS: 93978

== ENCOUNTER → 2023-05-08 | Outpatient (CLI) | payer MEDICARE ==
[~2023-05-08] MED LIST changes: +BENZ-226 PO; -BENZ-70 PO
== END | disposition home or self-care (01) ==
LOC: SHCH 08:17
PROVIDERS: ATTEND Internal Medicine Cardiovascular Disease
DX: I71.40 Abdominal aortic aneurysm, without rupture, unspecified (principal); I70.0 Atherosclerosis of aorta
CPT/HCPCS: 93978